=== PATIENT | male | born 1995 | race Caucasian/White ===

== ENCOUNTER 2025-01-14 14:11 | Emergency (ER) | payer OTHER ==
[2025-01-14] MEDS ORDERED: Ketorolac Tromethamine 30 MG (1 mL) VIAL ONE (16:50)
[2025-01-14] MEDS ORDERED: Orphenadrine Citrate 60 MG/2 ML VIAL ONE (16:50)
== END 2025-01-14 17:20 | disposition home or self-care (01) ==
LOC: NAV ERS 14:11
DX: S13.9XXA Sprain of joints and ligaments of unspecified parts of neck, initial encounter (principal); S50.12XA Contusion of left forearm, initial encounter; W51.XXXA Accidental striking against or bumped into by another person, initial encounter
CPT/HCPCS: 72125; 96374; 96375; J1885; J2360; J3010